=== PATIENT | female | born 1960 | race Hispanic/Latino ===

== ENCOUNTER 2016-12-31 04:18 | Emergency (ER) | payer OTHER ==
[2016-12-31 04:29] VITALS: BP 193/119; PULSE 108; RESP 16; TEMP 99; O2SAT 100
--- NOTE | 2016-12-31 05:07 | ED PDOC ---
HPI: General Adult Time Seen by Provider: 12/31/16 04:33 Chief Complaint (Nursing): Upper Extremity Problem/Injury Chief Complaint (Provider): left-sided neck pain History Per: Patient History/Exam Limitations: no limitations Onset/Duration Of Symptoms: Days (2) Current Symptoms Are (Timing): Still Present Additional History Per: Patient Additional Complaint(s): 56 y/o female presents with left-sided neck pain x 2 days. Patient states she woke up with pain, which has worsened since then. She notes pain worse with movement of head and left upper extremity. No relief with excedrin. Denies fever, headache, dizziness, extremity numbness/weakness, vision changes, chest pain, shortness of breath, palpitations. Past Medical History Reviewed: Historical Data, Nursing Documentation, Vital Signs Vital Signs: Last Vital Signs Temp 99.0 F 12/31/16 04:28 Pulse 108 H 12/31/16 04:28 Resp 16 12/31/16 04:28 BP 193/119 H 12/31/16 04:28 Pulse Ox 100 12/31/16 05:11 - Medical History PMH: No Chronic Diseases - Surgical History Surgical History: No Surg Hx - Family History Family History: States: Unknown Family Hx - Living Arrangements Living Arrangements: With Family - Social History Current smoker - smoking cessation education provided: Yes Alcohol: None Drugs: Denies - Home Medications Home Medications: Ambulatory Orders Medication Instructions Recorded No Known Home Med 12/31/16 - Allergies Allergies/Adverse Reactions: Allergies Allergy/AdvReac Type Severity Reaction Status Date / Time No Known Allergies Allergy Verified 09/30/15 03:32 Review of Systems ROS Statement: Except As Marked, All Systems Reviewed And Found Negative Musculoskeletal: Positive for: Neck Pain Physical Exam - Reviewed Nursing Documentation Reviewed: Yes Vital Signs Reviewed: Yes - Physical Exam Appears: Positive for: Well, Non-toxic, Uncomfortable Head Exam: Positive for: ATRAUMATIC, NORMAL INSPECTION, NORMOCEPHALIC Skin: Positive for: Normal Color Eye Exam: Positive for: Normal appearance ENT: Positive for: Normal ENT Inspection Cardiovascular/Chest: Positive for: Regular Rate, Rhythm Respiratory: Positive for: Normal Breath Sounds Back: Positive for: Decreased ROM (due to pain left side of neck), Muscle Spasm (tender along left trapezius down to left shoulder; FROM.). Negative for: L CVA Tenderness, R CVA Tenderness - ECG ECG: Positive for: Viewed By Me (reviewed by ED attending) ECG Rhythm: Positive for: Sinus Rhythm O2 Sat by Pulse Oximetry: 100 - Progress ED Course And Treament: ekg, toradol IM, flexeril PO, tramadol PO On re-eval, patient notes only slight improvement of pain; now 7/10 Percocet PO ordered Disposition - Clinical Impression Clinical Impression: Muscle strain - Patient ED Disposition Is Patient to be Admitted: No - Disposition Disposition: Transfer of Care Disposition Time: 06:04 Condition: STABLE Patient Signed Over To: Keturah Ndiaye Handoff Comments: pending re-eval after pain medication
[2016-12-31] MEDS ORDERED: Oxycodone/Acetaminophen 5/325 mg Tab ONE (05:56)
[2016-12-31] MEDS ORDERED: Oxycodone/Acetaminophen 5/325 mg Tab PO ONE (05:59)
--- NOTE | 2016-12-31 06:04 | ED PDOC ---
- ECG O2 Sat by Pulse Oximetry: 100 Medical Decision Making Medical Decision Making: Patient s/o from Julieta Fountain PA-C at 0600 pending pain meds and re-eval. Will likely d/c after re-eval. 0638: Patient feels better after pain meds and is stable for d/c. Instructed to f/u with her PCP and return to the ED with any worsening or concerning symptoms. Scribe Attestation: Documented by Ciera Pavon acting as a scribe for Keturah Ndiaye MD. Provider Scribe Attestation: All medical record entries made by the Scribe were at my direction and personally dictated by me. I have reviewed the chart and agree that the record accurately reflects my personal performance of the history, physical exam, medical decision making, and the department course for this patient. I have also personally directed, reviewed, and agree with the discharge instructions and disposition. Disposition Counseled Patient/Family Regarding: Studies Performed, Diagnosis, Need For Followup - Clinical Impression Clinical Impression: Muscle strain - POA Present On Arrival: None - Disposition Referrals: [facility] [Outside] [facility] [Outside] Disposition: Routine/Home Disposition Time: 06:39 Condition: IMPROVED Additional Instructions: follow up with your primary doctor in 1-2 days return to the ED with any worsening or concerning symptoms. Prescriptions: Ibuprofen [Motrin] 600 mg PO Q6H PRN #20 tab PRN Reason: Pain, Moderate (4-7) Instructions: Ibuprofen (By mouth), Muscle Strain (ED)
--- NOTE | 2016-12-31 09:18 | CARD ---
APPROVED REPORT EKG Measurement Heart [id number] <Conclusion> Normal sinus rhythm Minimal voltage criteria for LVH, may be normal variant Borderline ECG
== END 2016-12-31 06:51 | disposition home or self-care (01) ==
LOC: H.ER 04:18
DX: S16.1XXA Strain of muscle, fascia and tendon at neck level, initial encounter (principal); X58.XXXA Exposure to other specified factors, initial encounter; F17.210 Nicotine dependence, cigarettes, uncomplicated

== ENCOUNTER 2017-03-01 03:43 | Emergency (ER) | payer OTHER ==
[2017-03-01 03:58] VITALS: BP 192/109; PULSE 114; RESP 18; TEMP 99.2; O2SAT 99
[2017-03-01] MEDS ORDERED: Oxycodone/Acetaminophen 5/325 mg Tab PO STA (04:00)
--- NOTE | 2017-03-01 04:01 | ED PDOC ---
Lower Extremity Pain/Injury Time Seen by Provider: 03/01/17 03:53 Chief Complaint (Nursing): Lower Extremity Problem/Injury Chief Complaint (Provider): Knee pain History Per: Patient Additional Complaint(s): Pt is a 56 yo female, no PMH, brought in by EMS for right knee pain. Pt does not recall how she fell, admits to drinking tonight. As per EMS, pt with friends and stated she tripped on crack. Pt with bruising to the right knee. Past Medical History Reviewed: Nursing Documentation, Vital Signs Vital Signs: Last Vital Signs Temp 99.2 F 03/01/17 03:55 Pulse 114 H 03/01/17 03:55 Resp 18 03/01/17 03:55 BP 192/109 H 03/01/17 03:55 Pulse Ox 99 03/01/17 03:55 - Medical History PMH: No Chronic Diseases - Surgical History Surgical History: No Surg Hx - Family History Family History: States: Unknown Family Hx - Living Arrangements Living Arrangements: With Family - Social History Current smoker - smoking cessation education provided: Yes Alcohol: Social Drugs: Denies - Home Medications Home Medications: Ambulatory Orders Medication Instructions Recorded Ibuprofen [Motrin] 600 mg PO Q6H PRN #20 tab 12/31/16 Ibuprofen [Motrin] 600 mg PO Q6 #20 tab 03/01/17 - Allergies Allergies/Adverse Reactions: Allergies Allergy/AdvReac Type Severity Reaction Status Date / Time No Known Allergies Allergy Verified 09/30/15 03:32 Review of Systems ROS Statement: Except As Marked, All Systems Reviewed And Found Negative Musculoskeletal: Positive for: Leg Pain Physical Exam - Reviewed Nursing Documentation Reviewed: Yes Vital Signs Reviewed: Yes - Physical Exam Appears: Positive for: Well, Non-toxic, No Acute Distress Head Exam: Positive for: ATRAUMATIC, NORMAL INSPECTION, NORMOCEPHALIC Skin: Positive for: Normal Color, Warm, DRY Eye Exam: Positive for: EOMI, Normal appearance, PERRL ENT: Positive for: Normal ENT Inspection Neck: Positive for: Normal, Painless ROM Cardiovascular/Chest: Positive for: Regular Rate, Rhythm Respiratory: Positive for: CNT, Normal Breath Sounds Gastrointestinal/Abdominal: Positive for: Normal Exam, Bowel Sounds, Soft Back: Positive for: Normal Inspection Extremity: Positive for: Normal ROM, Tenderness, Swelling, Other (mild ecchymosis) Neurologic/Psych: Positive for: Alert, Oriented - ECG O2 Sat by Pulse Oximetry: 99 Medical Decision Making Medical Decision Making: XR: NAD, as read by PATorin Pt declined analgesics RICE therapy advised Disposition - Clinical Impression Clinical Impression: Knee contusion - Disposition Referrals: Lewis Larson MD [Staff Provider] - Disposition Time: 04:54 Condition: STABLE Prescriptions: Ibuprofen [Motrin] 600 mg PO Q6 #20 tab Instructions: Knee Pain (ED)
[2017-03-01] MEDS ORDERED: Oxycodone/Acetaminophen 5/325 mg Tab ONE (04:19)
--- NOTE | 2017-03-01 16:41 | RAD ---
PROCEDURE: Right Knee Radiographs. HISTORY: pain s/p fall COMPARISON: None. FINDINGS: BONES: Normal. No fracture. JOINTS: Joint spaces appear relatively preserved with no significant osteoarthritis. JOINT EFFUSION: None. OTHER FINDINGS: None. IMPRESSION: No evidence of acute displaced fracture nor dislocation.
== END 2017-03-01 04:49 | disposition home or self-care (01) ==
LOC: H.ER 03:43
DX: S80.01XA Contusion of right knee, initial encounter (principal); W19.XXXA Unspecified fall, initial encounter; Y92.89 Other specified places as the place of occurrence of the external cause

== ENCOUNTER 2017-09-08 02:05 | Emergency (ER) | payer OTHER ==
[2017-09-08 02:11] VITALS: BMI 19.8
[2017-09-08 04:10] LABS: BASO % 0.5 % (0.0-2.0); EOS % 0.5 % (0.0-4.0); HEMOGLOBIN 12.3 g/dL (12.0-16.0); LYMPH # 1.5 K/uL (1.0-4.3); LYMPH % 26.3 % (20.0-40.0); MEAN CELL VOLUME 94.8 fl (81.0-99.0); MEAN CORPUSCULAR HGB CONC 33.7 g/dL (33.0-37.0); MEAN PLATELET VOLUME 8.3 fl (7.2-11.7); MONO # 0.3 K/uL (0.0-0.8); MONO % 5.5 % (0.0-10.0); NEUT # 3.9 K/uL (1.8-7.0); NEUT % 67.2 % (50.0-75.0); RBC 3.85 Mil/uL (3.80-5.20); RED CELL DISTRIBUTION WIDTH 13.5 % (11.5-14.5); WHITE BLOOD COUNT 5.8 K/uL (4.8-10.8)
[2017-09-08 04:19] LABS: ALB/GLOB RATIO 1.4 (1.0-2.1); ALBUMIN 4.1 g/dL (3.5-5.0); ALT/SGPT 31 U/L (9-52); AST/SGOT 28 U/L (14-36); BLOOD UREA NITROGEN 12 mg/dl (7-17); CALCIUM 9.4 mg/dL (8.4-10.2); GFR AFRICAN-AMERICAN > 60; GFR NON-AFRICAN AMERICAN > 60
--- NOTE | 2017-09-08 04:26 | ED PDOC ---
HPI: Head Injury Time Seen by Provider: 09/08/17 02:31 Chief Complaint (Nursing): Trauma Chief Complaint (Provider): head injury History Per: EMS History/Exam Limitations: no limitations Onset/Duration Of Symptoms: Mins (prior to arrival) Additional Complaint(s): 57 year old female who presents to the emergency department via EMS for an evaluation of head injury prior to arrival. Patient was initially found by police for alcohol intoxication but noticed a large facial contusion, thus, prompted call to EMS. Unable to obtain medical history due to patient's current state of intoxication and violent agitation. Patient refused to tell provider how contusion was sustained. PMD: none provided Past Medical History Reviewed: Nursing Documentation, Vital Signs, Unable To Obtain Vital Signs: Last Vital Signs Temp 98.6 F 09/08/17 02:13 Pulse 128 H 09/08/17 02:13 Resp 18 09/08/17 02:13 BP Pulse Ox 100 09/08/17 02:13 - Family History Family History: States: Unknown Family Hx - Social History Current smoker - smoking cessation education provided: Yes Alcohol: > 2 Drinks/Day Drugs: Denies - Home Medications Home Medications: Ambulatory Orders Medication Instructions Recorded Ibuprofen [Motrin] 600 mg PO Q6H PRN #20 tab 12/31/16 - Allergies Allergies/Adverse Reactions: Allergies Allergy/AdvReac Type Severity Reaction Status Date / Time No Known Allergies Allergy Verified 09/30/15 03:32 Review of Systems Review Of Systems: ROS cannot be obtained secondary to pt's inabilty to answer questions. (intoxication and agitation) Physical Exam - Reviewed Nursing Documentation Reviewed: Yes Vital Signs Reviewed: Yes - Physical Exam Appears: Positive for: Well, Non-toxic, No Acute Distress Head Exam: Negative for: NORMAL INSPECTION Skin: Positive for: Normal Color Eye Exam: Positive for: Normal appearance, EOMI, PERRL. Negative for: Nystagmus ENT: Positive for: Normal ENT Inspection Neck: Positive for: Normal, Painless ROM. Negative for: Decreased ROM Cardiovascular/Chest: Positive for: Regular Rate, Rhythm, Chest Non Tender Respiratory: Positive for: Normal Breath Sounds. Negative for: Decreased Breath Sounds, Respiratory Distress Extremity: Positive for: Normal ROM (upper/lower). Negative for: Pedal Edema ( bilateral), Deformity (upper/lower) Neurologic/Psych: Positive for: Alert, Mood/Affect (extremely agitated and abusive towards staff with slurred speech), Other (large contusion to right- sided forehead and periorbital). Negative for: Motor/Sensory Deficits - Laboratory Results Result Diagrams: 09/08/17 04:07 09/08/17 04:07 - ECG O2 Sat by Pulse Oximetry: 100 (RA) Pulse Ox Interpretation: Normal Medical Decision Making Medical Decision Making: Initial Impression: Head injury; alcohol intoxication Initial Plan: * CT Cspine * CT head * CT maxillofacial * Alcohol serum * CMP * Drug scree, urine * Urine * Urine dipstick * CBC * 1:1 OBS * Accucheck Time: 0230 --Patient agitated and abusive towards staff. --Ativan 2mg and Haldol 5mg ordered. --4 points restraints ordered for self injury and fall risk. Time: 0510 --CT head FINDINGS: Artifacts: Limited due to motion and misregistration artifacts. Brain: Cerebral and cerebellar volume loss. Patchy hypodensity is seen in the periventricular and subcortical white matter. Limited evaluation of brooks-white differentiation secondary to motion. No hemorrhage. Ventricles: Unremarkable. No ventriculomegaly. Bones/joints: Unremarkable. No acute fracture. Soft tissues: Unremarkable. Sinuses: Unremarkable. No acute sinusitis. Mastoid air cells: Unremarkable. No mastoid effusion. Orbits: Right frontal and periorbital hematoma. The globe and lens are intact. IMPRESSION: 1. Right frontal and periorbital hematoma. 2. No evidence of an acute intracranial hemorrhage, midline shift or mass effect is identified. Time: 05 --CT C-spine FINDINGS: Vertebrae: Intraosseous gas at C6. There is non-fusion of spinous process of C7 and T1. There is grade 1 anterolisthesis of C4 over C5. No acute fracture. Discs/spinal canal/neural foramina: No acute findings. No spinal canal stenosis. C3-C4: There is moderate narrowing of left neural foramina. Soft tissues: Unremarkable. Dental: Maxillary partial denture in place. Edentulous mandible. Lung apices: Unremarkable. Other findings: Facet arthritis. IMPRESSION: There is no acute fracture of cervical spine. Time: 519 --CT Maxillofacial FINDINGS: Bones/joints: Possible remote fracture deformity of the nasal bone seen on image 74 series 602. Soft tissues: Right frontal and periorbital soft tissue hematoma. Orbits: Unremarkable. Sinuses: Moderate bilateral maxillary sinus disease. Mild patchy ethmoid sinus disease. No air-fluid levels. Dental: There is left mandibular carious destruction of the molar with periapical abscess and retained root seen on image 90 series 602. There is carious involvement of maxillary tooth supporting the partial denture. There is left maxillary retained root with periapical abscess.Correlation with dental clinical evaluation and further workup or followup as recommended by patient's clinical data. Edentulous mandible. Brain: Cerebral and cerebellar volume loss. Patchy hypodensity is seen in the periventricular and subcortical white matter. Other findings: Maxillary partial denture in place. IMPRESSION: 1. Right frontal and periorbital soft tissue hematoma. 2. There is left mandibular carious destruction of the molar with periapical abscess and retained root seen on image 90 series 602. There is carious involvement of maxillary tooth supporting the partial denture. There is left maxillary retained root with periapical abscess.Correlation with dental clinical evaluation and further workup or followup as recommended by patient's clinical data. 07:00 --Patient will be signed out to Dr. Ndiaye, pending sobriety and reevaluation Scribe Attestation: Documented by Sarahi Herring, acting as a scribe for Attila Schroeder MD. Provider Scribe Attestation: All medical record entries made by the Scribe were at my direction and personally dictated by me. I have reviewed the chart and agree that the record accurately reflects my personal performance of the history, physical exam, medical decision making, and the department course for this patient. I have also personally directed, reviewed, and agree with the discharge instructions and disposition. Disposition - Clinical Impression Clinical Impression: Alcohol intoxication, Orbital contusion - Disposition Disposition: Transfer of Care Disposition Time: 07:00 Condition: FAIR Additional Instructions: follow up with your primary doctor in 1-2 days return to the ED with any worsening or concerning symptoms follow up with dentist Critical Care Time - Critical Care Note Total Time (in mins): 30 Documented critical care: time excludes all time spent performing seperately billable procedures.
[2017-09-08 04:27] LABS: BARBITURATES, UR NEGATIVE (NEGATIVE); BENZODIAZEPINES, UR NEGATIVE (NEGATIVE); OPIATES, UR NEGATIVE (NEGATIVE); PHENCYCLIDINE, UR NEGATIVE (NEGATIVE)
--- NOTE | 2017-09-08 05:10 | CT ---
EXAM: CT Head Without Intravenous Contrast CLINICAL HISTORY: 57 years old, female; Injury or trauma; Fall; Additional info: Headache TECHNIQUE: Axial computed tomography images of the head/brain without intravenous contrast. All CT scans at this facility use one or more dose reduction techniques, viz.: automated exposure control; ma/kV adjustment per patient size (including targeted exams where dose is matched to indication; i.e. head); or iterative reconstruction technique. 326 images are submitted. Coronal and sagittal reformatted images were created and reviewed. Axial reformatted images were created and reviewed. COMPARISON: No relevant prior studies available. FINDINGS: Artifacts: Limited due to motion and misregistration artifacts. Brain: Cerebral and cerebellar volume loss. Patchy hypodensity is seen in the periventricular and subcortical white matter. Limited evaluation of brooks-white differentiation secondary to motion. No hemorrhage. Ventricles: Unremarkable. No ventriculomegaly. Bones/joints: Unremarkable. No acute fracture. Soft tissues: Unremarkable. Sinuses: Unremarkable. No acute sinusitis. Mastoid air cells: Unremarkable. No mastoid effusion. Orbits: Right frontal and periorbital hematoma. The globe and lens are intact. IMPRESSION: 1. Right frontal and periorbital hematoma. 2. No evidence of an acute intracranial hemorrhage, midline shift or mass effect is identified.
--- NOTE | 2017-09-08 05:15 | CT ---
EXAM: CT Cervical Spine Without Intravenous Contrast CLINICAL HISTORY: 57 years old, female; Injury or trauma; Fall; Initial encounter; Blunt trauma; Additional info: Neck injury TECHNIQUE: Axial computed tomography images of the cervical spine without intravenous contrast. All CT scans at this facility use one or more dose reduction techniques, viz.: automated exposure control; ma/kV adjustment per patient size (including targeted exams where dose is matched to indication; i.e. head); or iterative reconstruction technique. 531 images are submitted.Sagittal , axial and coronal MPR reformatted images are submitted in soft tissue and bone windows. COMPARISON: No relevant prior studies available. FINDINGS: Vertebrae: Intraosseous gas at C6. There is non-fusion of spinous process of C7 and T1. There is grade 1 anterolisthesis of C4 over C5. No acute fracture. Discs/spinal canal/neural foramina: No acute findings. No spinal canal stenosis. C3-C4: There is moderate narrowing of left neural foramina. Soft tissues: Unremarkable. Dental: Maxillary partial denture in place. Edentulous mandible. Lung apices: Unremarkable. Other findings: Facet arthritis. IMPRESSION: There is no acute fracture of cervical spine.
--- NOTE | 2017-09-08 05:21 | CT ---
EXAM: CT Maxillofacial and mandible Without Intravenous Contrast CLINICAL HISTORY: 57 years old, female; Injury or trauma; Fall; Initial encounter; Blunt trauma (contusions or hematomas); Forehead and orbit/periorbital; Right; Additional info: Facial trauma TECHNIQUE: Axial computed tomography images of the face and mandible without intravenous contrast. All CT scans at this facility use one or more dose reduction techniques, viz.: automated exposure control; ma/kV adjustment per patient size (including targeted exams where dose is matched to indication; i.e. head); or iterative reconstruction technique.Sagittal , axial and coronal MPR reformatted images are submitted in soft tissue and bone windows. CT maxillofacial with mandible 594 images are submitted. COMPARISON: No relevant prior studies available. FINDINGS: Bones/joints: Possible remote fracture deformity of the nasal bone seen on image 74 series 602. Soft tissues: Right frontal and periorbital soft tissue hematoma. Orbits: Unremarkable. Sinuses: Moderate bilateral maxillary sinus disease. Mild patchy ethmoid sinus disease. No air-fluid levels. Dental: There is left mandibular carious destruction of the molar with periapical abscess and retained root seen on image 90 series 602. There is carious involvement of maxillary tooth supporting the partial denture. There is left maxillary retained root with periapical abscess.Correlation with dental clinical evaluation and further workup or followup as recommended by patient's clinical data. Edentulous mandible. Brain: Cerebral and cerebellar volume loss. Patchy hypodensity is seen in the periventricular and subcortical white matter. Other findings: Maxillary partial denture in place. IMPRESSION: 1. Right frontal and periorbital soft tissue hematoma. 2. There is left mandibular carious destruction of the molar with periapical abscess and retained root seen on image 90 series 602. There is carious involvement of maxillary tooth supporting the partial denture. There is left maxillary retained root with periapical abscess.Correlation with dental clinical evaluation and further workup or followup as recommended by patient's clinical data.
--- NOTE | 2017-09-08 07:03 | ED PDOC ---
- Laboratory Results Result Diagrams: 09/08/17 04:07 09/08/17 04:07 - ECG O2 Sat by Pulse Oximetry: 100 (RA) Medical Decision Making Medical Decision Makin:00 --Patient was endorsed to me by Dr. Schroeder, pending sobriety and reevaluation 14:30 --During reevaluation, unsteady gait noted on patient 1530 pt family came to pick her up. stable gait,. stable vitals. pt sober/ready for dc. enouraged outpt follow up especially with dental for incidental note of dental findings on CT Disposition - Clinical Impression Clinical Impression: Alcohol intoxication, Orbital contusion - POA Present On Arrival: None - Disposition Disposition: Routine/Home Disposition Time: 15:30 Condition: IMPROVED Additional Instructions: follow up with your primary doctor in 1-2 days return to the ED with any worsening or concerning symptoms follow up with dentist
[2017-09-08 09:38] VITALS: RESP 18
[2017-09-08 13:43] VITALS: TEMP 97.8
[2017-09-08 14:45] VITALS: O2SAT 100
[2017-09-08 16:03] VITALS: BP 159/90; PULSE 98
== END 2017-09-08 16:05 | disposition home or self-care (01) ==
LOC: H.ER 02:05
DX: F10.129 Alcohol abuse with intoxication, unspecified (principal); S00.10XA Contusion of unspecified eyelid and periocular area, initial encounter; S09.90XA Unspecified injury of head, initial encounter; W19.XXXA Unspecified fall, initial encounter; Y92.89 Other specified places as the place of occurrence of the external cause; F17.200 Nicotine dependence, unspecified, uncomplicated
CPT/HCPCS: 70450; 70486; 72125; 80053; 80320; 80324; 80345; 80346; 80349; 80353; 80358; 80361; 83992; 85025; 96372; 99285; J1630; J2060

== ENCOUNTER 2017-11-10 03:03 | Emergency (ER) | payer OTHER ==
[2017-11-10 03:03] VITALS: BMI 19.8
[2017-11-10 03:48] LABS: BASO % 0.4 % (0.0-2.0); EOS # 0.1 K/uL (0.0-0.7); HEMOGLOBIN 12.5 g/dL (12.0-16.0); LYMPH # 2.3 K/uL (1.0-4.3); LYMPH % 31.7 % (20.0-40.0); MEAN CORPUSCULAR HEMOGLOBIN 32.3 pg (27.0-31.0); MEAN PLATELET VOLUME 7.8 fl (7.2-11.7); MONO # 0.5 K/uL (0.0-0.8); MONO % 7.2 % (0.0-10.0); NEUT # 4.3 K/uL (1.8-7.0); NEUT % 59.7 % (50.0-75.0); NRBC % 0.1 % (0.0-0.0); RBC 3.86 Mil/uL (3.80-5.20); RED CELL DISTRIBUTION WIDTH 13.7 % (11.5-14.5); WHITE BLOOD COUNT 7.3 K/uL (4.8-10.8)
[2017-11-10 03:58] LABS: ALB/GLOB RATIO 1.3 (1.0-2.1); ALBUMIN 4.1 g/dL (3.5-5.0); ALT/SGPT 26 U/L (9-52); AST/SGOT 33 U/L (14-36); BLOOD UREA NITROGEN 15 mg/dl (7-17); CALCIUM 9.2 mg/dL (8.4-10.2); GFR AFRICAN-AMERICAN > 60; GFR NON-AFRICAN AMERICAN > 60
--- NOTE | 2017-11-10 04:46 | ED PDOC ---
HPI: Psych/Substance Abuse Time Seen by Provider: 11/10/17 03:09 Chief Complaint (Nursing): Alcohol Ingestion Chief Complaint (Provider): Alcohol Ingestion ED Caveat: Intoxicated, Uncooperative History Per: EMS History/Exam Limitations: intoxication Current Symptoms Are (Timing): Still Present Suicide/Self Injury Attempted (Context): None Modifying Factor(s): Alcohol Associated Symptoms: Agitation Additional Complaint(s): 57 year old female brought in by EMS and accompanied by HPD presents to ED with complaints of alcohol ingestion and has no past medical history. EMS states patient was found walking around [place] and was extremely uncooperative in triage. Patient is extremely aggressive and uncooperative with staff, limiting HPI. PCP: DELMY Past Medical History Reviewed: Historical Data, Nursing Documentation, Vital Signs Vital Signs: Last Vital Signs Temp 98.7 F 11/10/17 03:30 Pulse 87 11/10/17 03:55 Resp 18 11/10/17 03:55 BP 133/77 11/10/17 03:55 Pulse Ox 99 11/10/17 03:55 - Medical History PMH: No Chronic Diseases - Family History Family History: States: Unknown Family Hx - Social History Alcohol: > 2 Drinks/Day - Home Medications Home Medications: Ambulatory Orders Medication Instructions Recorded Ibuprofen [Motrin] 600 mg PO Q6H PRN #20 tab 12/31/16 - Allergies Allergies/Adverse Reactions: Allergies Allergy/AdvReac Type Severity Reaction Status Date / Time No Known Allergies Allergy Verified 11/10/17 03:11 Review of Systems Review Of Systems: ROS cannot be obtained secondary to pt's inabilty to answer questions. (Patient is intoxicated) Physical Exam - Reviewed Nursing Documentation Reviewed: Yes Vital Signs Reviewed: Yes - Physical Exam Appears: Positive for: Non-toxic, No Acute Distress (alcohol on breath) Head Exam: Positive for: ATRAUMATIC Skin: Positive for: Normal Color, Warm, Dry Eye Exam: Positive for: Normal appearance Cardiovascular/Chest: Positive for: Regular Rate, Rhythm. Negative for: Murmur Respiratory: Negative for: Respiratory Distress Gastrointestinal/Abdominal: Positive for: Soft. Negative for: Tenderness Neurologic/Psych: Positive for: Alert - Laboratory Results Result Diagrams: 11/10/17 03:43 11/10/17 03:43 - ECG O2 Sat by Pulse Oximetry: 99 (RA) Pulse Ox Interpretation: Normal Medical Decision Making Medical Decision Makin Initial impression: alcohol intoxication Initial plan: * EtOH serum * Labs * Ativan 2mg IM * Haldol 5mg IM * Restraints: violent Chemical sedation and restraints ordered to relieve acute agitation and prevent patient from harming staff and provider, as patient is extremely agitated and uncooperative. 0430 Upon re-evaluation, patient is resting comfortably in her room. Vitals stable. 0700 Patient will be signed over to Dr. Fraga pending sobriety. Scribe Attestation: Documented by Merna Ruiz acting as a scribe for Keturah Ndiaye MD. Scribe Attestation: All medical record entries made by the Scribe were at my direction and personally dictated by me. I have reviewed the chart and agree that the record accurately reflects my personal performance of the history, physical exam, medical decision making, and the department course for this patient. I have also personally directed, reviewed, and agree with the discharge instructions and disposition. Disposition - Clinical Impression Clinical Impression: Alcohol abuse with intoxication - Patient ED Disposition Is Patient to be Admitted: Transfer of Care - Disposition Referrals: [facility] [Outside] Disposition: Transfer of Care Disposition Time: 07:00 Condition: STABLE Instructions: Alcohol Abuse and Alcoholism (DC) Patient Signed Over To: Tex Fraga
--- NOTE | 2017-11-10 07:30 | ED PDOC ---
- Laboratory Results Result Diagrams: 11/10/17 03:43 11/10/17 03:43 - ECG O2 Sat by Pulse Oximetry: 95 - Progress Re-evaluation Time: 12:03 Condition: Re-examined, Improved Medical Decision Making Medical Decision Makin Patient signed out to provider from Dr. Fraga pending sobriety. Scribe Attestation: Documented by Merna Ruiz acting as a scribe Tex Fraga MD. Scribe Attestation: All medical record entries made by the Scribe were at my direction and personally dictated by me. I have reviewed the chart and agree that the record accurately reflects my personal performance of the history, physical exam, medical decision making, and the department course for this patient. I have also personally directed, reviewed, and agree with the discharge instructions and disposition. Disposition Counseled Patient/Family Regarding: Studies Performed, Diagnosis - Clinical Impression Clinical Impression: Alcohol abuse with intoxication - POA Present On Arrival: None - Disposition Referrals: [facility] [Outside] Disposition: Routine/Home Disposition Time: 12:05 Condition: GOOD Instructions: Alcohol Abuse and Alcoholism (DC)
[2017-11-10 09:48] VITALS: RESP 16
[2017-11-10 11:59] VITALS: BP 129/81; PULSE 68; TEMP 98.4
[2017-11-13 23:01] VITALS: O2SAT 99
== END 2017-11-10 12:45 | disposition home or self-care (01) ==
LOC: H.ER 03:03
DX: F10.129 Alcohol abuse with intoxication, unspecified (principal)
CPT/HCPCS: 80053; 80320; 82948; 85025; 96372; 99285; J1630; J2060

== ENCOUNTER 2018-03-16 00:29 | Emergency (ER) | payer OTHER ==
[2018-03-16 00:30] VITALS: BMI 19.8
[2018-03-16 00:36] VITALS: PULSE 82; RESP 16; TEMP 98.8; O2SAT 100
[2018-03-16] MEDS ORDERED: Sodium Chloride 0.9% 1,000 ML IV STA (01:03)
--- NOTE | 2018-03-16 01:12 | ED PDOC ---
HPI: Abdomen Chief Complaint (Provider): Abdominal pain History Per: Patient History/Exam Limitations: no limitations Onset/Duration Of Symptoms: Days, Gradual (started 3 days ago and has increased) Current Symptoms Are (Timing): Still Present Pain Scale Rating Of: 7 Location Of Pain/Discomfort: Epigastric Quality Of Discomfort: Sharp, Dull, Pressure Associated Symptoms: Nausea, Diarrhea Exacerbating Factors: Supine Alleviating Factors: Other (sitting up) Last Bowel Movement: Today Abnormal Vaginal Bleeding: No Last Menstral Period: Postmenopausal : 2 Para: 1 <Rosas Anderson - Last Filed: 03/16/18 04:55> <Haim Grahma - Last Filed: 03/16/18 05:32> Time Seen by Provider: 03/16/18 00:37 Chief Complaint (Nursing): Abdominal Pain Additional Complaint(s): CC: abdominal pain HPI: 57 y/o female with unremarkable PMHx, presents to the ED with c/o sharp, pressing pain to the center of the "stomach", pain is constant, started on evening, but patient states was tolerable, then on Friday she drank 2 beers and the pain increased but still it was not as bad as today that the patient states the pain is over 7/10, she notes similar pain in the past but not as bad as now, she states she has never visited a doctor for abdominal pain and has no EGD or colonoscopy done in the past, patient states the pain radiates to the sides in a band like fashion and to the back, is accompanied by nausea but no vomiting, it increases in supine and prone position and gets relief when sitting up, patient notes she had 1 loose stool BM today. Denies dark stools, blood in the stools, fever, chills, chest pain, SOB, dysuria, hematuria. PMD: Dr Hernandez (Rosas Anderson) Supervising Attending Note <Rosas Anderson - Last Filed: 03/16/18 04:55> - Attestation: I have personally seen and examined this patient.: Yes I have fully participated in the care of the patient.: Yes I have reviewed all pertinent clinical information: Yes <Haim Graham - Last Filed: 03/16/18 05:32> - Notes: Notes:: Patient with hx of ETOH abuse presenting with epigastric pain, nausea x 4 days, worsening with drinking and eating. Pt. has epigastric tenderness, resolved with pepcid, zofran, and IVF. PAtient's BP came down, STRONGLY advised followup with PMD (patient can't remember name). Return precautions given. Diet instructions discussed, advised to stop drinking and smoking. (Haim Graham) Past Medical History Reviewed: Historical Data, Nursing Documentation, Vital Signs - Medical History PMH: No Chronic Diseases - Surgical History Other surgeries: Ectopic - Family History Family History: States: No Known Family Hx - Living Arrangements Living Arrangements: With Family - Social History Current smoker - smoking cessation education provided: Yes Alcohol: Occasional Drugs: Denies <Rosas Anderson - Last Filed: 03/16/18 04:55> <Haim Graham - Last Filed: 03/16/18 05:32> Vital Signs: Last Vital Signs Temp 98.8 F 03/16/18 00:33 Pulse 82 03/16/18 00:33 Resp 16 03/16/18 00:33 BP 169/88 H 03/16/18 03:39 Pulse Ox 100 03/16/18 04:56 - Home Medications Home Medications: Ambulatory Orders Medication Instructions Recorded Ibuprofen [Motrin] 600 mg PO Q6H PRN #20 tab 12/31/16 Omeprazole 20 mg PO DAILY #30 capsule. 03/16/18 hydroCHLOROthiazide [Hydrodiuril] 25 mg PO DAILY #30 tab 03/16/18 - Allergies Allergies/Adverse Reactions: Allergies Allergy/AdvReac Type Severity Reaction Status Date / Time No Known Allergies Allergy Verified 03/16/18 02:29 Review of Systems ROS Statement: Except As Marked, All Systems Reviewed And Found Negative Gastrointestinal: Positive for: Nausea, Abdominal Pain, Diarrhea <Rosas Anderson - Last Filed: 03/16/18 04:55> Physical Exam - Reviewed Nursing Documentation Reviewed: Yes Vital Signs Reviewed: Yes - Physical Exam Appears: Positive for: Uncomfortable Head Exam: Positive for: ATRAUMATIC, NORMOCEPHALIC Skin: Positive for: Normal Color, Warm. Negative for: Jaundice Eye Exam: Positive for: EOMI, PERRL Neck: Positive for: Supple Cardiovascular/Chest: Positive for: Regular Rate, Rhythm. Negative for: Murmur Respiratory: Positive for: Normal Breath Sounds. Negative for: Rales Gastrointestinal/Abdominal: Positive for: Bowel Sounds, Tenderness (to palpation of epigastrium), Guarding Back: Positive for: Normal Inspection Extremity: Negative for: Pedal Edema Neurologic/Psych: Positive for: Alert, Oriented <Rosas Anderson - Last Filed: 03/16/18 04:55> - Laboratory Results Result Diagrams: 03/16/18 01:15 03/16/18 01:15 - ECG O2 Sat by Pulse Oximetry: 100 <Rosas Anderson - Last Filed: 03/16/18 04:55> - Laboratory Results Result Diagrams: 03/16/18 01:15 03/16/18 01:15 <Haim Graham - Last Filed: 03/16/18 05:32> Medical Decision Making <Rosas Anderson - Last Filed: 03/16/18 04:55> <Haim Graham - Last Filed: 03/16/18 05:32> Medical Decision Making: -Patient evaluated, BW done CBC and BMP unremarkable -ED course: IVF administered, Pepcid 2O IVP x1 , zofran 4 mg IV x 1 give. Abdominal pain improved, decision is made to d/c patient home, instructions are given to patient to f/u with PCP in 1 to 2 days, Avoid smoking, and avoid drinking alcohol. Instructions given to return to the ED if condition persist or worsen. DX impression: Gastritis (Rosas Anderson) Disposition - Patient ED Disposition Is Patient to be Admitted: No Counseled Patient/Family Regarding: Diagnosis, Need For Followup, Smoking Cessation - Disposition Disposition Time: 04:00 - POA Present On Arrival: None <Rosas Anderson - Last Filed: 03/16/18 04:55> <Haim Graham - Last Filed: 03/16/18 05:32> - Clinical Impression Clinical Impression: Gastritis - Disposition Referrals: [facility] [Outside] Condition: STABLE Prescriptions: hydroCHLOROthiazide [Hydrodiuril] 25 mg PO DAILY #30 tab Omeprazole 20 mg PO DAILY #30 capsule. Instructions: Gastritis Forms: [employer] (Italian)
[2018-03-16 01:45] LABS: BASO # 0.1 K/uL (0.0-0.2); BASO % 0.7 % (0.0-2.0); EOS % 0.2 % (0.0-4.0); HEMOGLOBIN 13.9 g/dL (12.0-16.0); LYMPH # 1.9 K/uL (1.0-4.3); LYMPH % 20.5 % (20.0-40.0); MEAN CELL VOLUME 97.3 fl (81.0-99.0); MEAN CORPUSCULAR HEMOGLOBIN 32.8 pg (27.0-31.0); MEAN CORPUSCULAR HGB CONC 33.7 g/dL (33.0-37.0); MEAN PLATELET VOLUME 8.6 fl (7.2-11.7); MONO # 0.5 K/uL (0.0-0.8); MONO % 5.4 % (0.0-10.0); NEUT # 6.8 K/uL (1.8-7.0); NEUT % 73.2 % (50.0-75.0); RBC 4.25 Mil/uL (3.80-5.20); RED CELL DISTRIBUTION WIDTH 13.4 % (11.5-14.5); WHITE BLOOD COUNT 9.4 K/uL (4.8-10.8)
[2018-03-16 01:51] LABS: ALB/GLOB RATIO 1.4 (1.0-2.1); ALBUMIN 4.6 g/dL (3.5-5.0); ALT/SGPT 15 U/L (9-52); AST/SGOT 30 U/L (14-36); BLOOD UREA NITROGEN 16 mg/dl (7-17); CALCIUM 10.3 mg/dL (8.4-10.2); GFR AFRICAN-AMERICAN > 60; GFR NON-AFRICAN AMERICAN > 60; LIPASE 56 U/L (23-300)
[2018-03-16 02:32] LABS: SQUAMOUS EPITHIAL 1 /hpf (0-5); URINE BILIRUBIN NEGATIVE (NEGATIVE); URINE BLOOD NEGATIVE (NEGATIVE); URINE CLARITY SLIGHTY-CLOUDY (Clear); URINE COLOR YELLOW (YELLOW); URINE GLUCOSE (UA) NEG (Normal); URINE LEUKOCYTE ESTERASE NEG Leu/uL (Negative); URINE PROTEIN 30 mg/dL (NEGATIVE); URINE UROBILINOGEN 0.2-1.0 mg/dL (0.2-1.0)
[2018-03-16 03:31] LABS: BARBITURATES, UR NEGATIVE (NEGATIVE); BENZODIAZEPINES, UR NEGATIVE (NEGATIVE); OPIATES, UR NEGATIVE (NEGATIVE); PHENCYCLIDINE, UR NEGATIVE (NEGATIVE)
[2018-03-16 03:39] VITALS: BP 169/88
--- NOTE | 2018-03-17 11:23 | CARD ---
APPROVED REPORT Date of service: 03/16/2018 EKG Measurement Heart [id number] <Conclusion> Normal sinus rhythm Voltage criteria for left ventricular hypertrophy Abnormal ECG
== END 2018-03-16 04:10 | disposition home or self-care (01) ==
LOC: H.ER 00:29
DX: K29.70 Gastritis, unspecified, without bleeding (principal)
CPT/HCPCS: 80053; 80320; 80324; 80345; 80346; 80349; 80353; 80358; 80361; 81003; 83690; 83992; 85025; 86850; 86900; 93005; 96361; 96374; 96375; 99283; J2405; J7030

== ENCOUNTER 2018-05-10 | Emergency (ER) | payer OTHER ==
[2018-05-10] VITALS: BMI 19.8
[2018-05-10 00:09] VITALS: TEMP 99.6
[2018-05-10] MEDS ORDERED: Sodium Chloride 0.9% 1,000 ML IV STA (00:53)
[2018-05-10 01:41] LABS: BASO % 0.4 % (0.0-2.0); EOS % 0.3 % (0.0-4.0); HEMOGLOBIN 11.7 g/dL (12.0-16.0); LYMPH # 1.8 K/uL (1.0-4.3); LYMPH % 14.8 % (20.0-40.0); MEAN CELL VOLUME 94.9 fl (81.0-99.0); MEAN CORPUSCULAR HEMOGLOBIN 32.2 pg (27.0-31.0); MEAN CORPUSCULAR HGB CONC 33.9 g/dL (33.0-37.0); MEAN PLATELET VOLUME 8.1 fl (7.2-11.7); MONO # 0.7 K/uL (0.0-0.8); MONO % 5.9 % (0.0-10.0); NEUT # 9.8 K/uL (1.8-7.0); NEUT % 78.6 % (50.0-75.0); RBC 3.64 Mil/uL (3.80-5.20); RED CELL DISTRIBUTION WIDTH 12.4 % (11.5-14.5); WHITE BLOOD COUNT 12.4 K/uL (4.8-10.8)
[2018-05-10 01:43] VITALS: RESP 18
[2018-05-10 01:51] LABS: BLOOD UREA NITROGEN 45 mg/dl (7-17); CALCIUM 9.5 mg/dL (8.4-10.2); GFR NON-AFRICAN AMERICAN 42
[2018-05-10 01:52] LABS: VENOUS BLOOD GAS BASE EXCESS 0.5 mmol/L (0.0-2.0); VENOUS BLOOD GAS PCO2 50 mmHg (40-60); VENOUS BLOOD GAS PO2 17 mm/Hg (30-55); VENOUS BLOOD PH 7.34 (7.32-7.43)
--- NOTE | 2018-05-10 02:00 | ED PDOC ---
Syncope/Near Syncope/Dizziness Time Seen by Provider: 05/10/18 00:43 Chief Complaint (Nursing): Chest Pain Chief Complaint (Provider): Chest Pain and dizziness History Per: Patient History/Exam Limitations: no limitations Onset/Duration Of Symptoms: Days (x 1) Current Symptoms Are (Timing): Better Additional Complaint(s): 58 year old female with a history of HTN presents to the ED with intermittent episodes of dizziness and near syncope. 2 weeks ago she was started on 12.5 mg of Lisinopril by her PMd and has since has spots in her vision and dizziness. Patient was at [facility] earlier and had chicken sandwich. After, she experienced multiple episodes of non bloody non bilious vomiting and diarrhea. States she became anxious and started having chest pain. On arrival to the ED, she is feeling better. PMD: Dr Sunny Young Past Medical History Reviewed: Historical Data, Nursing Documentation, Vital Signs Vital Signs: Last Vital Signs Temp 99.6 F 05/10/18 00:03 Pulse 81 05/10/18 01:43 Resp 18 05/10/18 01:43 BP 94/63 L 05/10/18 01:43 Pulse Ox 98 05/10/18 01:43 - Medical History PMH: Gastritis, HTN - Surgical History Surgical History: No Surg Hx - Family History Family History: States: Unknown Family Hx - Home Medications Home Medications: Ambulatory Orders Medication Instructions Recorded Ibuprofen [Motrin] 600 mg PO Q6H PRN #20 tab 12/31/16 Omeprazole 20 mg PO DAILY #30 capsule. 03/16/18 hydroCHLOROthiazide [Hydrodiuril] 25 mg PO DAILY #30 tab 03/16/18 - Allergies Allergies/Adverse Reactions: Allergies Allergy/AdvReac Type Severity Reaction Status Date / Time No Known Allergies Allergy Verified 05/10/18 00:03 Review of Systems ROS Statement: Except As Marked, All Systems Reviewed And Found Negative Cardiovascular: Positive for: Chest Pain Neurological: Positive for: Dizziness Physical Exam - Reviewed Nursing Documentation Reviewed: Yes Vital Signs Reviewed: Yes - Physical Exam Appears: Positive for: Non-toxic, No Acute Distress Head Exam: Positive for: ATRAUMATIC, NORMAL INSPECTION, NORMOCEPHALIC Skin: Positive for: Normal Color, Warm, Dry Eye Exam: Positive for: EOMI, Normal appearance, PERRL Neck: Positive for: Normal, Painless ROM, Supple Cardiovascular/Chest: Positive for: Regular Rate, Rhythm. Negative for: Murmur Respiratory: Positive for: Normal Breath Sounds. Negative for: Wheezing, Respiratory Distress Gastrointestinal/Abdominal: Positive for: Normal Exam, Soft. Negative for: Tenderness Extremity: Positive for: Normal ROM. Negative for: Deformity Neurologic/Psych: Positive for: Alert, Oriented (x 3). Negative for: Motor/ Sensory Deficits - Laboratory Results Result Diagrams: 05/10/18 01:38 05/10/18 01:38 - ECG O2 Sat by Pulse Oximetry: 98 (Ra) Pulse Ox Interpretation: Normal Medical Decision Making Medical Decision Makin:53 A&P: History of HTN presenting with dizziness Patient has mild hypotension on vital signs Could be related to medication side effects with gastroenteritis Patient is well appearing Orders: --CBC --VBG --Troponin --BMP --NS IV 300 Patient's symptoms resolved after 1L NS Advised patient to followup with PMD regarding BP medications --Well appearing with normal vitals upon discharge Scribe Attestation: Documented by Tierra Hudson acting as a scribe for Haim Graham MD Provider Scribe Attestation: All medical record entries made by the Scribe were at my direction and personally dictated by me. I have reviewed the chart and agree that the record accurately reflects my personal performance of the history, physical exam, medical decision making, and the department course for this patient. I have also personally directed, reviewed, and agree with the discharge instructions and disposition. Disposition - Clinical Impression Clinical Impression: Medication side effect, Gastroenteritis - Disposition Referrals: Demetrius Young MD [Staff Provider] - Disposition: Routine/Home Disposition Time: 03:00 Condition: IMPROVED Instructions: Side Effects From Medicines, Gastroenteritis (ED) Forms: [employer] (Yakut)
[2018-05-10 03:05] VITALS: BP 103/69; PULSE 73
[2018-05-10 07:25] VITALS: O2SAT 98
== END 2018-05-10 03:22 | disposition home or self-care (01) ==
LOC: H.ER
DX: K52.9 Noninfective gastroenteritis and colitis, unspecified (principal); T88.7XXA Unspecified adverse effect of drug or medicament, initial encounter; I10 Essential (primary) hypertension
CPT/HCPCS: 80048; 82803; 84484; 85025; 96360; 99284; J7030